=== PATIENT | male | born 1940 | race Caucasian/White ===

== ENCOUNTER 2019-07-28 05:16 | Day surgery (SDC) | payer MEDICARE, BC ==
[~2019-07-28 05:16] MED LIST: CEFAZOLIN SODIUM 2 GM in DEXTROSE 5%-WATER 100 ML IV PRN
--- NOTE | 2019-07-28 07:02 | RADIOLOGY REPORT (SQ) ---
EXAM DESCRIPTION: XR CHEST 1 VIEW COMPLETED DATE/TME: 07/28/2019 00:00 CLINICAL HISTORY: 79 years Male, preop COMPARISON: None. NUMBER OF VIEWS/TECHNIQUE: 1/AP FINDINGS: Adequate lung volume, clear parenchyma, normal cardiac silhouette, and intact bony thorax.Old granulomatous disease. Sternotomy. Cardiac/mediastinal hardware/clips. Atherosclerotic vascular disease. IMPRESSION: No acute cardiopulmonary findings.
[2019-07-28 07:05] LABS: APPEARANCE,URINE CLEAR; BILIRUBIN,URINE NEGATIVE (NEGATIVE); COLOR,URINE YELLOW; GLUCOSE, URINE NEGATIVE (NEGATIVE); KETONES,URINE NEGATIVE (NEGATIVE); LEUKOCYTE ESTERASE,URINE NEGATIVE (NEGATIVE); NITRITE,URINE NEGATIVE (NEGATIVE); PROTEIN,URINE NEGATIVE (NEGATIVE); URINE SPECIFIC GRAVITY 1.016; UROBILINOGEN,URINE NEGATIVE mg/dL (<2.0)
[2019-07-28] MEDS ORDERED: BUPIVACAINE HCL 0.5%-EPI 1:200000 INJ/PF 30 ML VIAL ONE (07:06)
[2019-07-28] MEDS ORDERED: BUPIVACAINE HCL 0.5 % INJ/PF 30 ML SDV ONE (07:06)
[2019-07-28 07:10] LABS: ABSOLUTE BASOPHILS # (AUTO) 0.1 10^3/uL (0.0-0.2); ABSOLUTE EOSINOPHILS # (AUTO) 0.3 10^3/uL (0.0-0.6); ABSOLUTE LYMPHOCYTES (AUTO) 1.2 10^3/uL (0.5-4.7); ABSOLUTE MONOCYTES (AUTO) 0.7 10^3/uL (0.1-1.4); ABSOLUTE NEUT (AUTO) 3.2 10^3/uL (1.7-8.2); ANION GAP 6 (5-19); BASOPHILS % (AUTO) 1.2 % (0-2); BLOOD UREA NITROGEN 19 mg/dL (7-20); CALCIUM 8.5 mg/dL (8.4-10.2); CARBON DIOXIDE 27 mmol/L (22-30); CHLORIDE 102 mmol/L (98-107); EOSINOPHILS % (AUTO) 4.8 % (0-6); GLUCOSE 107 mg/dL (75-110); HEMATOCRIT 38.2 % (37.9-51.0); HEMOGLOBIN 13.2 g/dL (13.5-17.0); LYMPHOCYTES % (AUTO) 22.3 % (13-45); MEAN CORPUSCULAR HGB CONC 34.5 g/dL (32.0-36.0); MEAN CORPUSCULAR VOLUME 90 fl (80-97); MONOCYTES % (AUTO) 12.4 % (3-13); PLATELET COUNT 173 10^3/uL (150-450); POTASSIUM 4.6 mmol/L (3.6-5.0); RED BLOOD COUNT 4.25 10^6/uL (4.35-5.55); RED CELL DISTRIBUTION WIDTH 14.9 % (11.5-14.0); SEGMENTED NEUTROPHILS % (AUTO) 59.3 % (42-78); TOTAL CELLS COUNTED % (AUTO) 100 %; WHITE BLOOD COUNT 5.4 10^3/uL (4.0-10.5)
[2019-07-28] MEDS ORDERED: MIDAZOLAM 2 MG/2 ML INJ ONE (07:24)
[2019-07-28] MEDS ORDERED: FENTANYL CITRATE INJ/PF 100 MCG/2 ML AMPUL ONE (07:24)
[2019-07-28] MEDS ORDERED: EPHEDRINE SULFATE INJ 50 MG/1 ML AMPULE ONE (07:24)
[2019-07-28] MEDS ORDERED: PROPOFOL INJ 200 MG/20 ML VIAL IV ONE (07:25)
[2019-07-28] MEDS ORDERED: FENTANYL CITRATE INJ/PF 100 MCG/2 ML AMPUL IV PRN ×3 (07:50)
[2019-07-28] MEDS ORDERED: OXYCODONE-ACETAMINOPHEN 5-325 MG TABLET PO PRN ×2 (07:50)
[2019-07-28] MEDS ORDERED: DIPHENHYDRAMINE HCL 50 MG/ML VIAL IV PRN (07:50)
[2019-07-28] MEDS ORDERED: PROMETHAZINE HCL INJ 25 MG/1 ML VIAL IV PRN ×2 (07:50)
[2019-07-28] MEDS ORDERED: MEPERIDINE HCL/PF INJ 25 MG/1 ML DISP.SYRIN IV PRN (07:50)
--- NOTE | 2019-07-28 09:08 | Discharge Summary ---
Discharge Summary (SDC) - Discharge Final Diagnosis: Right periprosthetic quadriceps disruption Date of Surgery: 07/28/19 Discharge Date: 07/28/19 Condition: Good Forms: ASU Anesthesia D/C Instruction, Discharge POC-Surgical Service Treatment or Instructions: Wear right lower extremity brace at all times locked in extension. Weightbearing as tolerated. Remove compressive wrap on Friday and OpSite dressing in place. You can shower once the compressive wrap has been removed. Prescriptions: Oxycodone HCl [Oxy-Ir 5 mg Tablet] 5 mg PO Q6 PRN #24 tablet PRN Reason: Referrals: WALTER BURCIAGA MD [ACTIVE STAFF] - 08/11/19 1:00 pm Discharge Diet: Regular Respiratory Treatments at Home: Deep Breathing/Coughing Discharge Activity: Balance Activity w/Rest, No tub bath Home Care Assistance: None Needed Report the Following to Your Physician Immediately: Shortness of Breath, Fever over 101 Degrees, Drainage-Foul Smelling
--- NOTE | 2019-07-28 09:11 | Operative Report ---
Operative Report DATE OF SURGERY: 07/28/19 PREOPERATIVE DIAGNOSIS: Right periprosthetic extensor mechanism disruption POSTOPERATIVE DIAGNOSIS: Right periprosthetic quadriceps tendon disruption OPERATION: Open repair of right quadriceps tendon SURGEON: WALTER BURCIAGA ANESTHESIA: Spinal TISSUE REMOVED OR ALTERED: Cultures to microbiology ESTIMATED BLOOD LOSS: Minimal PROCEDURE: With the patient supine on the operating table the right lower extremities prepped and draped in a sterile fashion. The limb is elevated for exsanguination tourniquet inflated 280 torr. A standard midline incision is made in line with the previous surgical approach. Upon transecting the dermis a large amount of liquefied hematoma is identified and this is cultured and sent to microbiology. The dissection is developed medial and laterally and it is clear that there is been disruption at the quadriceps insertion into the patella. 2 x 5.5 the medial bone anchors were placed into the proximal patella medial and lateral to the midline. 2 of the FiberWire sutures that emanate from the bone anchors were then used to bring the quadriceps tendon back to the prox imal patella using a Krakw suture fashion. The remaining 2 sutures from each bone anchor are then used to repair the respective medial and lateral retinaculum. Lastly a fiber wire tape was passed through infrapatellar and into the suprapatellar region and a [id number] construct is used with this to reinforce the primary repair. Direct visualization at this point the knee is flexed through a range of motion of oh to 60 degrees. The repair appears to be solid. There is some stiffness at the extremes of flexion which is not unexpected. The tourniquet is deflated. There is minimal if any bleeding. The wound is irrigated. The subcutaneous layers were reapproximated interrupted Vicryl and the skin reapproximated with christy. A sterile compressive dressing and lower extremity's are applied. The patient is returned to the PACU in satisfactory condition.
--- NOTE | 2019-07-28 10:08 | EKG REPORT ---
SEVERITY:- OTHERWISE NORMAL ECG - SINUS RHYTHM LOW VOLTAGE IN FRONTAL LEADS : Confirmed by: Perlita Kilpatrick MD 28-Jul-2019 10:07:46
[2019-07-28 12:27] VITALS: BP 128/72
== END 2019-07-28 12:55 | disposition home or self-care (01) ==
LOC: OROUT 05:16
PROVIDERS: ATTEND Orthopaedic Surgery
DX: S76.111A Strain of right quadriceps muscle, fascia and tendon, initial encounter (principal); W19.XXXA Unspecified fall, initial encounter; Z96.659 Presence of unspecified artificial knee joint; I10 Essential (primary) hypertension; I25.10 Atherosclerotic heart disease of native coronary artery without angina pectoris; I25.2 Old myocardial infarction; Z79.82 Long term (current) use of aspirin; Z79.899 Other long term (current) drug therapy
CPT/HCPCS: 36415; 87070; 87205; 85025; 87075; 80048; 81001; 71045; 93005; 93010; 01250; 27385; C1713 ×2; J2250; J0690; J3490; J3010; J7060; J2704; 1250

== ENCOUNTER 2019-08-17 16:12 | Inpatient (IN) | payer MEDICARE, BC ==
--- NOTE | 2019-08-17 17:31 | ER Document Report ---
ED General - General Chief Complaint: Wound Infection Stated Complaint: KNEE SWELLING Time Seen by Provider: 08/17/19 16:25 Primary Care Provider: CECIL CORLEY MD [Primary Care Provider] - Follow up as needed Mode of Arrival: Medic Information source: Patient TRAVEL OUTSIDE OF THE [place] IN LAST 30 DAYS: No - HPI Notes: Patient was transferred here from [facility] under the direction of Dr. Martinez. Dr. Martinez did see and examine the patient in the emergency department. I did initially see the patient and get order started to help the patient's care progress as quickly as possible. Patient does complain of some right knee pain. Apparently his wound has been bleeding and has been ruptured at the suture site. Patient says he has some mild pain there. It is worse with movement and better with rest. The pain does radiate up his right leg. The pain is constant. It is mild to moderate in intensity. No known fevers. He has noticed some color changes about the knee and the right thigh. - Related Data Allergies/Adverse Reactions: bacitracin [From Neosporin Plus] Adverse Reaction (Verified 07/28/19 05:45) rash lidocaine [From Neosporin Plus] Adverse Reaction (Verified 07/28/19 05:45) rash miconazole [From Neosporin AF] Adverse Reaction (Verified 07/28/19 05:45) rash neomycin [From Neosporin Plus] Adverse Reaction (Verified 07/28/19 05:45) rash polymyxin B [From Neosporin Plus] Adverse Reaction (Verified 07/28/19 05:45) rash pramoxine [From Neosporin Plus] Adverse Reaction (Verified 07/28/19 05:45) rash Past Medical History - General Information source: Patient - Social History Smoking Status: Former Smoker Frequency of alcohol use: None Drug Abuse: None Family History: Reviewed & Not Pertinent Patient has suicidal ideation: No Patient has homicidal ideation: No - Past Medical History Cardiac Medical History: Reports: Hx Coronary Artery Disease, Hx Heart Attack - 10 YEARS AGO, Hx Hypercholesterolemia - meds x 6 years, Hx Hypertension, Hx Heart Murmur - "small"....difficult to detect Denies: Hx Atrial Fibrillation, Hx Congestive Heart Failure, Hx Peripheral Vascular Disease, Hx Pulmonary Embolism Pulmonary Medical History: Reports: Hx Sleep Apnea - Hx of, does NOT use CPAP at present Denies: Hx Asthma, Hx Bronchitis, Hx COPD, Hx Pneumonia, Hx Respiratory Failure, Hx Tuberculosis Neurological Medical History: Denies: Hx Cerebrovascular Accident, Hx Seizures, Hx Parkinson's Disease Renal/ Medical History: Reports: Hx Kidney Stones - multiple, deines surgery/ESWL. Denies: Hx Benign Prostatic Hyperplasia - nocturia x 2-3/night, Hx End Stage Renal Disease, Hx Peritoneal Dialysis Malignancy Medical History: Denies Hx Leukemia, Denies Hx Lung Cancer GI Medical History: Reports: Hx Liver Failure - "fatty liver". Denies: Hx Crohn's Disease, Hx Gastroesophageal Reflux Disease, Hx Hiatal Hernia, Hx Irritable Bowel, Hx Pancreatitis, Hx Ulcer Musculoskeletal Medical History: Reports Hx Arthritis, Denies Hx Fibromyalgia, Denies Hx Multiple Sclerosis, Denies Hx Muscular Dystrophy Psychiatric Medical History: Reports: Hx Depression - meds x 10 years Denies: Hx Bipolar Disorder, Hx Dementia, Hx Post Traumatic Stress Disorder, Hx Schizophrenia Traumatic Medical History: Reports: Hx Fractures - small toe LT foot Infectious Medical History: Denies: Hx HIV Past Surgical History: Reports: Hx Cholecystectomy - , 2012, Hx Coronary Artery Bypass Graft - 2008 (3 vessel). Denies: Hx Appendectomy, Hx Bowel Surgery, Hx Colostomy, Hx Gastric Bypass Surgery, Hx Herniorrhaphy, Hx Pacemaker, Hx Tonsillectomy Review of Systems - Review of Systems Constitutional: denies: Chills, Fever Cardiovascular: denies: Chest pain, Palpitations Respiratory: denies: Cough, Short of breath -: Yes All other systems reviewed and negative Physical Exam - Vital signs Vitals: Temp 98.5 F 08/17/19 16:40 Interpretation: Normal - General General appearance: Appears well, Alert - HEENT Head: Normocephalic, Atraumatic Eyes: Normal Pupils: PERRL - Respiratory Respiratory status: No respiratory distress Chest status: Nontender Breath sounds: Normal Chest palpation: Normal - Cardiovascular Rhythm: Regular Heart sounds: Normal auscultation Murmur: No - Abdominal Inspection: Normal Distension: No distension Bowel sounds: Normal Tenderness: Nontender Organomegaly: No organomegaly - Back Back: Normal, Nontender - Extremities General upper extremity: Normal inspection, Nontender, Normal color, Normal ROM, Normal temperature General lower extremity: Other - Patient's right knee has dehiscence of an o bvious surgical wound. At this time some red serosanguineous fluid can be expressed with pressure but otherwise there is no leakage of fluid. No pus is appreciated. Superior to this he does have some mild induration and tenderness as well as some blanching erythema. He also has some ecchymosis that is somewhat tender on the lateral upper right thigh.. No: Kalen's sign - Neurological Neuro grossly intact: Yes Cognition: Normal Orientation: AAOx4 [place] Coma Scale Eye Opening: Spontaneous [place] Coma Scale Verbal: Oriented [place] Coma Scale Motor: Obeys Commands [place] Coma Scale Total: 15 Speech: Normal Motor strength normal: LUE, RUE, LLE, RLE Sensory: Normal - Psychological Associated symptoms: Normal affect, Normal mood - Skin Skin Temperature: Warm Skin Moisture: Dry Skin Color: Normal Course - Re-evaluation Re-evalutation: 08/17/19 17:43 Patient was seen in the emergency room by Dr. Martinez. He states he will admit the patient and treat him further on the floor. - Vital Signs Vital signs: Temp Pulse Resp BP Pulse Ox 98.5 F 08/17/19 16:40 - Diagnostic Test Radiology reviewed: Image reviewed, Reports reviewed Discharge - Discharge Clinical Impression: Wound dehiscence, surgical Qualifiers: Encounter type: initial encounter Qualified Code(s): T81.31XA - Disruption of external operation (surgical) wound, not elsewhere classified, initial encounter Condition: Stable Disposition: ADMITTED INPATIENT Admitting Provider: Juan Unit Admitted: Surgical Floor Referrals: CECIL CORLEY MD [Primary Care Provider] - Follow up as needed
--- NOTE | 2019-08-17 17:48 | PDOC H&P ---
History of Present Illness Admission Date/PCP: CECIL CORLEY MD History of Present Illness: MATTY JO is a 79 year old male The patient is a 79-year-old white male status post a right knee arthroplasty in 2014 who most recently presented in late June with a disruption of the extensor mechanism status post a fall. On July 28, 2019 the patient was taken to the operating room and underwent a reconstruction of the extensor mechanism. He was subsequent seen in the office 2 weeks later at which point the wound was healing uneventfully and christy were removed. The patient had discontinued the use of the leg brace that had been applied postoperatively because it interfered with his ability to use the bathroom. Patient subsequently fell on several occasions. It was my impression at that office visit that the patient had directed the extensor mechanism again but I felt that by readjustment of the knee brace and leaving the knee in extension that the patient may scar down enough that he would have a functional extension of the knee. The patient today presented to the [facility] emergency room with drainage from the knee. He states that he still had problems with the knee brace and took it off so he can modify it. In the process of having the knee brace off the patient again fell in the bathtub. It is a result of this fall that has led to wound dehiscence and drainage. Past Medical History Cardiac Medical History: Reports: Coronary Artery Disease, Myocardial Infarction - 10 YEARS AGO, Hyperlipidema - meds x 6 years, Hypertension, Heart Murmur - "small"....difficult to detect Denies: Atrial Fibrillation, Congestive Heart Failure, Peripheral Vascular Disease, Pulmonary Embolism Pulmonary Medical History: Reports: Sleep Apnea - Hx of, does NOT use CPAP at present Denies: Asthma, Bronchitis, Chronic Obstructive Pulmonary Disease (COPD), Pneumonia, Respiratory Failure, Tuberculosis Neurological Medical History: Denies: Seizures Renal/ Medical History: Denies: End Stage Renal Disease Malignancy Medical History: Denies: Leukemia, Lung Cancer GI Medical History: Denies: Crohn's Disease, Gastroesophageal Reflux Disease, Hiatal Hernia Musculoskeltal Medical History: Reports: Arthritis Denies: Fibromyalgia Psychiatric Medical History: Reports: Depression - meds x 10 years Denies: Bipolar Disorder, Dementia, Post Traumatic Stress Disorder Hematology: Reports: Anemia Denies: Hemophilia, Sickle Cell Disease Infectious Medical History: Denies: HIV Past Surgical History Past Surgical History: Reports: Cholecystectomy - lap, 2012, Coronary Artery Bypass Graft - 2009 (3 vessel), Orthopedic Surgery - Right knee replacement 2014 Right knee extensor mechanism reconstruction Denies: Appendectomy, Colostomy, Gastric Bypass Surgery, Herniorrhaphy, Pacemaker, Tonsillectomy Social History Information Source: Patient, Dr. Montalvo, [facility] Records Lives with: Family Smoking Status: Unknown if Ever Smoked Hx Recreational Drug Use: No Hx Prescription Drug Abuse: No Family History Family History: Reviewed & Not Pertinent Parental Family History Reviewed: No Children Family History Reviewed: No Sibling(s) Family History Reviewed.: No Medication/Allergy Home Medications: Donepezil HCl [Aricept] 10 mg PO QPM 02/06/15 Metoprolol Succinate [Toprol Xl] 25 mg PO BID 02/06/15 Aspirin 81 mg PO DAILY 07/27/19 Cyclobenzaprine HCl 5 mg PO QHS PRN 07/27/19 Donepezil HCl 10 mg PO DAILY 07/27/19 Iron Otc 65 mg PO DAILY 07/27/19 Melatonin [Melatonin 3 mg Tablet] 3 mg PO QHS 07/27/19 Meloxicam [Mobic] 15 mg PO DAILY 07/27/19 Memantine HCl 5 mg PO BID 07/27/19 Simvastatin 40 mg PO QHS 07/27/19 Vitamin B12 Injections 1 applic INJ [id number] 07/27/19 Oxycodone HCl [Oxy-Ir 5 mg Tablet] 5 mg PO Q6 PRN #24 tablet 07/28/19 Allergies/Adverse Reactions: bacitracin [From Neosporin Plus] Adverse Reaction (Verified 07/28/19 05:45) rash lidocaine [From Neosporin Plus] Adverse Reaction (Verified 07/28/19 05:45) rash miconazole [From Neosporin AF] Adverse Reaction (Verified 07/28/19 05:45) rash neomycin [From Neosporin Plus] Adverse Reaction (Verified 07/28/19 05:45) rash polymyxin B [From Neosporin Plus] Adverse Reaction (Verified 07/28/19 05:45) rash pramoxine [From Neosporin Plus] Adverse Reaction (Verified 07/28/19 05:45) rash Review of Systems ROS unobtainable: Due to mental status All systems: as per PMH Physical Exam Vital Signs: Temp Pulse Resp BP Pulse Ox 36.9 C 08/17/19 16:40 Intake & Output 08/16/19 08/17/19 08/18/19 06:59 06:59 06:59 Weight 109 kg Physical Exam: The patient is a large elderly affable white male lying on ER gurney. The patient is conversant. He is unable to remember several facts such as his 's phone number. Is able to tell me that he took the knee brace off because it was bothering him and he wished to modify it. General appearance: PRESENT: no acute distress Head exam: PRESENT: normocephalic Respiratory exam: PRESENT: unlabored Cardiovascular exam: PRESENT: RRR Vascular exam: PRESENT: normal capillary refill GI/Abdominal exam: PRESENT: soft Rectal exam: PRESENT: deferred Extremities exam: PRESENT: other - Examination of the right lower extremity reveals a diffuse ecchymosis beginning at the greater trochanter and extending distally and posteriorly. Examination of the wound reveals a 3 cm dehiscence at the junction of the proximal and middle thirds of the incision. The patella seems to be intact with respect to the tibial tubercle but there seems to be disruption of the quadriceps tendon. Neurological exam: PRESENT: alert, awake, oriented to person, oriented to place, oriented to time, oriented to situation Skin exam: PRESENT: other - Large area of ecchymosis in the right lower extremity Results Status: Imported from PACS Assessment & Plan - Diagnosis (1) Wound dehiscence, surgical Qualifiers: Encounter type: initial encounter Qualified Code(s): T81.31XA - Disruption of external operation (surgical) wound, not elsewhere classified, initial encounter Is this a current diagnosis for this admission?: Yes Plan: Observation - Time Time Spent: 50 to 70 Minutes Anticipated discharge: SNF Within: Other
[2019-08-17] MEDS ORDERED: TRAMADOL HCL 50 MG TABLET PO PRN (17:49)
[2019-08-17] MEDS ORDERED: ONDANSETRON 4 MG TAB.RAPDIS PO PRN (17:49)
[2019-08-17 18:00] LABS: ABSOLUTE LYMPHOCYTES (AUTO) 0.6 10^3/uL (0.5-4.7); ABSOLUTE MONOCYTES (AUTO) 1.1 10^3/uL (0.1-1.4); ABSOLUTE NEUT (AUTO) 5.5 10^3/uL (1.7-8.2); BASOPHILS % (AUTO) 0.5 % (0-2); EOSINOPHILS % (AUTO) 0.6 % (0-6); HEMATOCRIT 27.6 % (37.9-51.0); HEMOGLOBIN 9.3 g/dL (13.5-17.0); LYMPHOCYTES % (AUTO) 8.4 % (13-45); MEAN CORPUSCULAR HEMOGLOBIN 30.7 pg (27.0-33.4); MEAN CORPUSCULAR HGB CONC 33.9 g/dL (32.0-36.0); MEAN CORPUSCULAR VOLUME 91 fl (80-97); MONOCYTES % (AUTO) 15.4 % (3-13); PLATELET COUNT 199 10^3/uL (150-450); RED BLOOD COUNT 3.04 10^6/uL (4.35-5.55); RED CELL DISTRIBUTION WIDTH 14.7 % (11.5-14.0); SEGMENTED NEUTROPHILS % (AUTO) 75.1 % (42-78); TOTAL CELLS COUNTED % (AUTO) 100 %; WHITE BLOOD COUNT 7.3 10^3/uL (4.0-10.5)
[2019-08-17 18:03] LABS: INTERNATIONAL RATION (INR) 1.31; PROTHROMBIN TIME 16.4 SEC (11.4-15.4)
[2019-08-17 18:04] LABS: PARTIAL THROMBOPLASTIN TIME 32.2 SEC (23.5-35.8)
--- NOTE | 2019-08-17 18:04 | RADIOLOGY REPORT (SQ) ---
EXAM DESCRIPTION: KNEE RIGHT 2 VIEWS IMAGES COMPLETED DATE/TIME: 08/17/2019 5:40 pm REASON FOR STUDY: wound infection COMPARISON: 02/13/2015 NUMBER OF VIEWS: Four views. TECHNIQUE: AP, cross-table lateral radiographic images acquired of the right knee. LIMITATIONS: None. FINDINGS: MINERALIZATION: Normal. BONES: No acute fracture JOINT: No effusion. SOFT TISSUES: Soft tissue swelling. On the cross-table lateral image, there are multiple radiolucen t foci identified in the anterior soft tissues of the thigh and at the knee. The patella appears to be displaced somewhat anteriorly which maybe related patient positioning and or the underlying soft t issue swelling/infection. OTHER: A 3.1 cm os ossific density in the soft tissues anterior to the distal right femoral shaft ma ybe on the basis of myositis ossification. IMPRESSION: 1. The patient has a known wound infection. Soft tissue swelling extends from the visu alized lower anterior right thigh into the knee with multiple radiolucent foci identified. These fin dings are probably consistent with the patient's history. 2. Total right knee arthroplasty. No radiographic evidence of loosening. TECHNICAL DOCUMENTATION: JOB ID: [id number] 2010 [employer]- All Rights Reserved Reading location - IP/workstation name: [email or web address]
[2019-08-17 18:21] LABS: ALBUMIN 2.4 g/dL (3.5-5.0); ALKALINE PHOSPHATASE 74 U/L (38-126); ANION GAP 6 (5-19); ASPARTATE AMINO TRANSFERASE 25 U/L (17-59); BILIRUBIN,DIRECT 0.3 mg/dL (0.0-0.4); BILIRUBIN,TOTAL 1.3 mg/dL (0.2-1.3); BLOOD UREA NITROGEN 24 mg/dL (7-20); CALCIUM 7.6 mg/dL (8.4-10.2); CARBON DIOXIDE 26 mmol/L (22-30); CHLORIDE 98 mmol/L (98-107); GLUCOSE 103 mg/dL (75-110); POTASSIUM 3.9 mmol/L (3.6-5.0); TOTAL PROTEIN 4.7 g/dL (6.3-8.2)
[2019-08-17] MEDS ORDERED: CEFTRIAXONE 2 GM/D5W RTU 2 GM/50 ML RTUPB IV SCH (18:30)
[2019-08-17 18:33] LABS: C-REACTIVE PROTEIN 260.8 mg/L (<10.0)
[2019-08-17 18:40] LABS: ERYTHROCYTE SEDIMENTATION RATE 111 mm/hr (0-20)
[2019-08-17] MEDS: RINGERS SOLUTION,LACTATED 1,000 ML IV PRN (18:40)
--- NOTE | 2019-08-18 08:19 | EKG REPORT ---
SEVERITY:- OTHERWISE NORMAL ECG - SINUS RHYTHM LOW VOLTAGE IN FRONTAL LEADS : Confirmed by: Perlita Kilpatrick MD 18-Aug-2019 08:18:47
[2019-08-18] MEDS ORDERED: DEXTROSE 40% GEL 15 GM TUBE PO PRN ×2 (09:00)
[2019-08-18] MEDS ORDERED: DEXTROSE 50%-WATER 25 GM/50 ML DISP.SYRIN IV PRN ×2 (09:00)
[2019-08-18] MEDS ORDERED: GLUCAGON,HUMAN RECOMB 1 MG INJ SUBCUT PRN (09:00)
[2019-08-18] MEDS: ASPIRIN 81 MG TABLET, ENT COATED PO SCH (11:00)
[2019-08-18] MEDS ORDERED: FENTANYL CITRATE INJ/PF 100 MCG/2 ML AMPUL ONE (12:29)
[2019-08-18] MEDS ORDERED: MIDAZOLAM 2 MG/2 ML INJ ONE (12:29)
[2019-08-18] MEDS ORDERED: HYDROMORPHONE HCL INJ/PF 2 MG/ML AMPULE ONE (12:29)
[2019-08-18] MEDS ORDERED: PROPOFOL INJ 200 MG/20 ML VIAL IV ONE (12:30)
[2019-08-18] MEDS ORDERED: ONDANSETRON HCL INJ/PF 4 MG/2 ML SDV ONE (12:30)
[2019-08-18] MEDS ORDERED: BACITRACIN INJ 50,000 UNIT VIAL ONE (12:32)
--- NOTE | 2019-08-18 14:16 | Operative Report ---
Operative Report DATE OF SURGERY: 08/18/19 PREOPERATIVE DIAGNOSIS: hematoma right knee OPERATION: Irrigation debridement attempted repeat repair of the extensor mechanism and wound closure SURGEON: WALTER BURCIAGA ANESTHESIA: GA TISSUE REMOVED OR ALTERED: Cultures to microbiology ESTIMATED BLOOD LOSS: 75 PROCEDURE: With the patient supine and operative table the right lower extremities prepped and draped in a sterile fashion. The existing incision is opened with digital pressure. The wound is inspected. There is been a complete disruption of the expense extensor mechanism repair that had previously been performed including the avulsion of the bone anchors from the patella. The wound is debrided. Previous suture repair is removed in total along with the bone anchors. The soft tissue was scraped using a bearden elevator. All remaining tissue was viable at this point. Wound is irrigated with pulse lavage containing 6 L of normal saline containing Betadine. #1 PDS is then used to attempt to repair of the extensor mechanism. I did this not so much for mechanical repair because I do not think will be strong enough to sustain any significant mechanical forces, but to effect a second layer of closure for the wound. Subsequently the subcutaneous layers were reapproximated interrupted PDS and suture reapproximated interrupted PDS suture. A compressive dressing and a knee immobilizer applied and the patient was returned to the PACU in satisfactory condition.
[2019-08-18] MEDS: RINGERS SOLUTION,LACTATED 1,000 ML IV PRN ×2 (15:33→17:25)
[2019-08-18] MEDS ORDERED: TRAMADOL HCL 50 MG TABLET PO PRN (16:00)
[2019-08-18] MEDS: CEFTRIAXONE 2 GM/D5W RTU 2 GM/50 ML RTUPB IV SCH (17:28)
[2019-08-18] MEDS: OXYCODONE HCL IR 5 MG TABLET PO PRN (21:32)
[2019-08-18] MEDS: VANCOMYCIN HCL 1,500 MG in DEXTROSE 5%-WATER 250 ML IV SCH (21:33)
[2019-08-19] MEDS: RINGERS SOLUTION,LACTATED 1,000 ML IV PRN ×2 (02:31→09:24)
[2019-08-19 05:04] LABS: HEMATOCRIT 26.3 % (37.9-51.0); HEMOGLOBIN 9.1 g/dL (13.5-17.0); MEAN CORPUSCULAR HEMOGLOBIN 30.7 pg (27.0-33.4); MEAN CORPUSCULAR HGB CONC 34.6 g/dL (32.0-36.0); MEAN CORPUSCULAR VOLUME 89 fl (80-97); PLATELET COUNT 195 10^3/uL (150-450); RED BLOOD COUNT 2.96 10^6/uL (4.35-5.55); RED CELL DISTRIBUTION WIDTH 14.4 % (11.5-14.0); WHITE BLOOD COUNT 6.7 10^3/uL (4.0-10.5)
[2019-08-19 05:25] LABS: BLOOD UREA NITROGEN 17 mg/dL (7-20); CALCIUM 7.4 mg/dL (8.4-10.2); GLUCOSE 93 mg/dL (75-110); POTASSIUM 4.4 mmol/L (3.6-5.0)
[2019-08-19 05:33] LABS: ANION GAP 6 (5-19); CARBON DIOXIDE 28 mmol/L (22-30); CHLORIDE 97 mmol/L (98-107)
--- NOTE | 2019-08-19 06:51 | PDOC PROGRESS REPORT ---
Subjective Progress Note for:: 08/19/19 Reason For Visit: RIGHT KNEE SURGICAL WOUND DIHISCENCE 79-year-old white male postop day 1 status post I&D of a right knee hematoma/wound dehiscence. Uneventful postoperative course. Gram stain not performed yesterday because of the nature of the specimen. What was sent from the eating room was a container containing liquefied hematoma from the wound as well as a swab. There was no tissue involved in this. She remains afebrile and pain is well controlled. Physical Exam Vital Signs: Temp Pulse Resp BP Pulse Ox 36.8 C 69 18 117/52 L 96 08/18/19 23:13 08/18/19 23:13 08/18/19 23:13 08/18/19 23:13 08/18/19 23:13 Intake & Output 08/17/19 08/18/19 08/19/19 06:59 06:59 06:59 Intake Total 100 3280 Output Total 800 2450 Balance -700 830 Weight 99.1 kg 99.5 kg Physical Exam: Middle-aged white male lying in hospital bed. He is sleeping soundly, awoken, and subsequently alert and appropriate. General appearance: PRESENT: no acute distress, mild distress Head exam: PRESENT: normocephalic Respiratory exam: PRESENT: unlabored Cardiovascular exam: PRESENT: RRR Pulses: PRESENT: +1 pedal pulses bilateral Vascular exam: PRESENT: normal capillary refill GI/Abdominal exam: PRESENT: soft Rectal exam: PRESENT: deferred Extremities exam: PRESENT: other - Right lower extremity dressing is clean dry and intact and knee immobilizer is in place. Skin exam: PRESENT: dry, intact, warm. ABSENT: cyanosis, rash Results Laboratory Results: 08/19/19 04:33 08/19/19 04:33 08/19/19 08/19/19 04:33 04:33 WBC 6.7 RBC 2.96 L Hgb 9.1 L Hct 26.3 L MCV 89 MCH 30.7 MCHC 34.6 RDW 14.4 H Plt Count 195 Sodium 131.3 L Potassium 4.4 Chloride 97 L Carbon Dioxide 28 Anion Gap 6 BUN 17 Creatinine 0.59 Est GFR ( Amer) > 60 Glucose 93 Calcium 7.4 L 08/18/19 13:40 Knee - Tissue (Surgical) Gram Stain - Final Impressions: Knee X-Ray 08/17/19 17:16 IMPRESSION: 1. The patient has a known wound infection. Soft tissue swelling extends from the visualized lower anterior right thigh into the knee with multiple radiolucent foci identified. These findings are probably consistent with the patient's history. 2. Total right knee arthroplasty. No radiographic evidence of loosening. Status: Imported from PACS Assessment & Plan - Diagnosis (1) Wound dehiscence, surgical Qualifiers: Encounter type: initial encounter Qualified Code(s): T81.31XA - Disruption of external operation (surgical) wound, not elsewhere classified, initial encounter Is this a current diagnosis for this admission?: Yes Plan: Await intraoperative cultures to tailor antibiotics. Mobilize with physical therapy today on a touchdown weightbearing basis. Knee immobilizer to remain in place 24 hours a day 7 days a week. Discussion with the patient's long term facility placement will be necessary. Social work has been consulted for this. If cultures turn positive a PICC line will be placed (2) Urinary tract infection Is this a current diagnosis for this admission?: Yes Plan: Patient being treated pre-admission by an outside urologist with antibiotics and an indwelling Robles. The latter continues. Antibiotics have been tailored for potential surgical site infection. - Time Time Spent with patient: 15-24 minutes Anticipated discharge: SNF Within: when bed available
[2019-08-19] MEDS: ASPIRIN 81 MG TABLET, ENT COATED PO SCH (09:21)
[2019-08-19] MEDS: OXYCODONE HCL IR 5 MG TABLET PO PRN ×2 (09:21→17:07)
[2019-08-19] MEDS: VANCOMYCIN HCL 1,500 MG in DEXTROSE 5%-WATER 250 ML IV SCH ×2 (09:22→22:08)
[2019-08-19] MEDS: CEFTRIAXONE 2 GM/D5W RTU 2 GM/50 ML RTUPB IV SCH (17:07)
[2019-08-20] MEDS: OXYCODONE HCL IR 5 MG TABLET PO PRN (04:29)
--- NOTE | 2019-08-20 06:47 | PDOC PROGRESS REPORT ---
Subjective Progress Note for:: 08/20/19 Reason For Visit: RIGHT KNEE SURGICAL WOUND DIHISCENCE 79-year-old white male now postop day 2 status post I&D of right knee wound. Patient informs me this morning that there are several medications that he had been taking that are not currently being administered. He is correct. This is reviewed with the nursing staff who will reinstate 3 medications. Slept well last night. Limited progress with physical therapy yesterday. Cultures demonstrate 1+ gram-positive cocci in clusters. Patient remains afebrile. Physical Exam Vital Signs: Temp Pulse Resp BP Pulse Ox 36.8 C 72 18 127/60 H 97 08/19/19 23:22 08/19/19 23:22 08/19/19 23:22 08/19/19 23:22 08/19/19 23:22 Intake & Output 08/18/19 08/19/19 08/20/19 06:59 06:59 06:59 Intake Total 100 3280 3250 Output Total 800 2450 3350 Balance -700 830 -100 Weight 99.1 kg 99.5 kg 96.2 kg General appearance: PRESENT: no acute distress, well-developed, well-nourished Head exam: PRESENT: normocephalic Respiratory exam: PRESENT: unlabored Cardiovascular exam: PRESENT: RRR Pulses: PRESENT: +1 pedal pulses bilateral Vascular exam: PRESENT: normal capillary refill GI/Abdominal exam: PRESENT: soft Rectal exam: PRESENT: deferred Extremities exam: PRESENT: other - Right lower extremity dressing clean dry and intact Results Laboratory Results: 08/19/19 04:33 08/19/19 04:33 08/18/19 13:40 Knee - Tissue (Surgical) Gram Stain - Final Impressions: Knee X-Ray 08/17/19 17:16 IMPRESSION: 1. The patient has a known wound infection. Soft tissue swelling extends from the visualized lower anterior right thigh into the knee with multiple radiolucent foci identified. These findings are probably consistent with the patient's history. 2. Total right knee arthroplasty. No radiographic evidence of loosening. Status: Imported from PACS Assessment & Plan - Diagnosis (1) Wound dehiscence, surgical Qualifiers: Encounter type: initial encounter Qualified Code(s): T81.31XA - Disruption of external operation (surgical) wound, not elsewhere classified, initial encounter Is this a current diagnosis for this admission?: Yes Plan: Await further results from microbiology. Tentative plan will be for discharge to a assisted facility. Social work is been consulted in the postoperative orders and a note is not present in the chart informing the other caregivers what options are available for the patient for placement. And for discharge to a assisted facility when bed available. Anticipate the need for prolonged antibiotic therapy and a PICC line has been ordered. (2) Urinary tract infection Is this a current diagnosis for this admission?: Yes Plan: Stable. Urine appears clear today. - Time Time Spent with patient: 15-24 minutes Anticipated discharge: SNF Within: when bed available
[2019-08-20] MEDS ORDERED: PHARMACY COMMUNICATION ORDER MC ONE (09:30)
[2019-08-20 09:59] LABS: VANCOMYCIN,TROUGH 7.9 ug/mL (5.0-20.0)
[2019-08-20] MEDS: VANCOMYCIN HCL 1,500 MG in DEXTROSE 5%-WATER 250 ML IV SCH ×2 (11:17→18:48)
[2019-08-20] MEDS: ASPIRIN 81 MG TABLET, ENT COATED PO SCH (11:18)
[2019-08-20] MEDS: FLUOXETINE HCL 20 MG CAPSULE PO SCH (11:18)
[2019-08-20] MEDS: MEMANTINE HCL 10 MG TABLET PO SCH (11:19)
[2019-08-20] MEDS: RINGERS SOLUTION,LACTATED 1,000 ML IV PRN (11:22)
--- NOTE | 2019-08-20 14:18 | RADIOLOGY REPORT (SQ) ---
EXAM DESCRIPTION: PICC INSERTION IMAGES COMPLETED DATE/TIME: 08/20/2019 1:55 pm REASON FOR STUDY: IV ABX COMPARISON: None. FLUOROSCOPY TIME: 13 seconds of fluoroscopy was used. 1 images saved to PACS. TECHNIQUE: Fluoroscopic and ultrasound guided PICC placement. LIMITATIONS: None. PROCEDURE: After written consent and assessment were obtained, the patient was brought into the fluo roscopy room and placed supine on the table. Ultrasound evaluation of potential access sites were per formed. After successfully identifying a patent left basilic vein, the left arm was prepped and drape d in a sterile fashion along with the ultrasound probe. The entry site was anesthetized with 1% lidoc herson. A 21 gauge 7 cm needle was advanced through the skin and into the basilic vein under live ultra sound guidance. An ultrasound image was saved to PACS confirming access site. A .018 guide wire was then inserted through the needle and into the venous system. The needle was then removed and an 11 b lade scalpel was used to make a 1cm skin incision. A 5 fr peel-away sheath was advanced over the wir e and into the venous system. A measurement was then made using the existing wire and live fluoroscop ic guidance. The wire was then removed and trimmed. The PICC was advanced through the peel-away sheat h and into the venous system. The peel-away sheath was removed and the catheter was adhered to the pa tients arm with a stat lock. The catheter was then aspirated and flushed and a sterile bandage was pl aced over the access site. A fluoroscopic spot image was saved to PACS confirming the catheter tip w ithin the superior vena cava. IMPRESSION: SUCCESSFUL PLACEMENT OF A 5 FR DUAL LUMEN 43 CM PICC IN THE LEFT BASILIC VEIN. COMMENT: Patient medication list reviewed: Yes- Quality ID# 130:Eligible professional attests to doc umenting in the medical record they obtained, updated, or reviewed the patient's current medications. . Quality ID 145: Final reports for procedures using fluoroscopy that document radiation exposure jaimee peter, or exposure time and number of fluorographic images (if radiation exposure indices are not avail able) Quality ID #76: The patient was prepped and draped using maximum sterile barrier technique including cap, mask, sterile gown, sterile gloves, a large sterile sheet, hand hygiene, and 2% Chlorhexidine fo r cutaneous antisepsis. When ultrasound is used, sterile ultrasound techniques are followed requiring sterile gel and sterile probes. TECHNICAL DOCUMENTATION: JOB ID: [id number] 2010 [employer]- All Rights Reserved rev-09/05 Reading location - IP/workstation name: [id number]
[2019-08-20] MEDS: CEFTRIAXONE 2 GM/D5W RTU 2 GM/50 ML RTUPB IV SCH (18:18)
[2019-08-20] MEDS: DONEPEZIL HCL 5 MG TABLET PO SCH (22:00)
[2019-08-21] MEDS: VANCOMYCIN HCL 1,500 MG in DEXTROSE 5%-WATER 250 ML IV SCH (02:27)
[2019-08-21] MEDS: RINGERS SOLUTION,LACTATED 1,000 ML IV PRN (05:11)
--- NOTE | 2019-08-21 08:30 | PDOC PROGRESS REPORT ---
Subjective Progress Note for:: 08/21/19 Subjective:: Patient lying in bed comfortably. No issues overnight. Denies fever chills or sweats. Still having difficulty with physical therapy. Reason For Visit: RIGHT KNEE SURGICAL WOUND DIHISCENCE Physical Exam Vital Signs: Temp Pulse Resp BP Pulse Ox 98.5 F 73 16 144/58 H 95 08/21/19 07:17 08/21/19 07:17 08/21/19 07:17 08/21/19 07:17 08/21/19 07:17 Intake & Output 08/20/19 08/21/19 08/22/19 06:59 06:59 06:59 Intake Total 3250 2970 Output Total 3350 4600 Balance -100 -1705 Weight 96.2 kg 100.1 kg Musculoskeletal exam: PRESENT: other - Right knee: Incision clean/dry/intact no erythema or drainage. Mild swelling. Intact plantarflexion/dorsiflexion. No sensory deficits. Results Laboratory Results: 08/19/19 04:33 08/20/19 09:25 08/20/19 09:25 Creatinine 0.69 Est GFR ( Amer) > 60 08/18/19 13:40 Knee - Right Gram Stain - Final 08/18/19 13:40 Knee - Tissue (Surgical) Gram Stain - Final Impressions: Knee X-Ray 08/17/19 17:16 IMPRESSION: 1. The patient has a known wound infection. Soft tissue swelling extends from the visualized lower anterior right thigh into the knee with multiple radiolucent foci identified. These findings are probably consistent with the patient's history. 2. Total right knee arthroplasty. No radiographic evidence of loosening. PICC Line Insertion 08/20/19 00:00 IMPRESSION: SUCCESSFUL PLACEMENT OF A 5 FR DUAL LUMEN 43 CM PICC IN THE LEFT BASILIC VEIN. Assessment & Plan - Diagnosis (1) Primary osteoarthritis of right knee Is this a current diagnosis for this admission?: Yes Plan: Status post irrigation debridement right knee 1. Patient will continue physical therapy but will require shelter facility given his limited mobility and frequent falls. 2. Cultures demonstrate methicillin sensitive staph aureus thus discontinue vancomycin we will continue Rocephin 3. Discharge planning to shelter facility when bed available. - Time Time Spent with patient: Less than 15 minutes
[2019-08-21] MEDS: MEMANTINE HCL 10 MG TABLET PO SCH (10:27)
[2019-08-21] MEDS: ASPIRIN 81 MG TABLET, ENT COATED PO SCH (10:27)
[2019-08-21] MEDS: FLUOXETINE HCL 20 MG CAPSULE PO SCH (10:27)
[2019-08-21] MEDS: CEFTRIAXONE 2 GM/D5W RTU 2 GM/50 ML RTUPB IV SCH (17:05)
[2019-08-21] MEDS: DONEPEZIL HCL 5 MG TABLET PO SCH (21:54)
[2019-08-21] MEDS: NORMAL SALINE 10 ML SDV (SCHEDULED) IV SCH (21:55)
[2019-08-22] MEDS: FLUOXETINE HCL 20 MG CAPSULE PO SCH (10:21)
[2019-08-22] MEDS: ASPIRIN 81 MG TABLET, ENT COATED PO SCH (10:21)
[2019-08-22] MEDS: MEMANTINE HCL 10 MG TABLET PO SCH (10:21)
[2019-08-22] MEDS: NORMAL SALINE 10 ML SDV (SCHEDULED) IV SCH ×2 (10:22→22:15)
--- NOTE | 2019-08-22 17:05 | PDOC PROGRESS REPORT ---
Subjective Subjective:: Patient lying in bed comfortably. No issues overnight. Denies fever chills or sweats. Still having difficulty with physical therapy but is showing improvement.. Reason For Visit: RIGHT KNEE SURGICAL WOUND DIHISCENCE Physical Exam Vital Signs: Temp Pulse Resp BP Pulse Ox 98.4 F 81 16 133/70 H 98 08/22/19 16:14 08/22/19 16:14 08/22/19 16:14 08/22/19 16:14 08/22/19 16:14 Intake & Output 08/21/19 08/22/19 08/23/19 06:59 06:59 06:59 Intake Total 2970 2410 240 Output Total 4651 9150 600 Balance -6323 -266 -721 Weight 100.1 kg 98.8 kg Musculoskeletal exam: PRESENT: other - Right lower extremity: Dressing clean/dry/intact no erythema or drainage. No sensory deficits. Intact plantarflexion/dorsiflexion. Results Laboratory Results: 08/19/19 04:33 08/20/19 09:25 08/18/19 13:40 Knee - Tissue (Surgical) Gram Stain - Final 08/18/19 13:40 Knee - Tissue (Surgical) Wound Culture - Final Staphylococcus Aureus No Anaerobic Organisms Impressions: Knee X-Ray 08/17/19 17:16 IMPRESSION: 1. The patient has a known wound infection. Soft tissue swelling extends from the visualized lower anterior right thigh into the knee with mul tiple radiolucent foci identified. These findings are probably consistent with the patient's history. 2. Total right knee arthroplasty. No radiographic evidence of loosening. PICC Line Insertion 08/20/19 00:00 IMPRESSION: SUCCESSFUL PLACEMENT OF A 5 FR DUAL LUMEN 43 CM PICC IN THE LEFT BASILIC VEIN. Assessment & Plan - Diagnosis (1) Primary osteoarthritis of right knee Is this a current diagnosis for this admission?: Yes Plan: Status post irrigation debridement right knee 1. Patient will continue physical therapy but will require [facility] facility given his limited mobility and frequent falls. 2. Cultures finalized and demonstrate methicillin sensitive staph aureus thus we will continue Rocephin 3. Discharge planning to [facility] facility when bed available. - Time Time Spent with patient: Less than 15 minutes
[2019-08-22] MEDS: CEFTRIAXONE 2 GM/D5W RTU 2 GM/50 ML RTUPB IV SCH (21:44)
[2019-08-22] MEDS: DONEPEZIL HCL 5 MG TABLET PO SCH (21:45)
--- NOTE | 2019-08-23 08:11 | PDOC TRANSFER SUMMARY ---
Impression - Admit/DC Date/PCP Admission Date/Primary Care Provider: 08/17/19 17:59 CECIL CORLEY MD Discharge Date: 08/23/19 - Discharge Diagnosis (1) Wound dehiscence, surgical Is this a current diagnosis for this admission?: Yes (2) Urinary tract infection Is this a current diagnosis for this admission?: Yes - Additional Information Resuscitation Status: Full Code Discharge Diet: Regular Discharge Activity: Balance Activity w/Rest, No tub bath, Other - Touchdown weightbearing right lower extremity. Knee immobilizer at all times Referrals: CECIL CORLEY MD [Primary Care Provider] - Follow up as needed Home Medications: Donepezil HCl [Aricept] 10 mg PO QPM 02/06/15 Metoprolol Succinate [Toprol Xl] 25 mg PO DAILY 02/06/15 Aspirin 81 mg PO DAILY 07/27/19 Cyclobenzaprine HCl 10 mg PO HSP PRN 07/27/19 Meloxicam [Mobic] 15 mg PO DAILY 07/27/19 Memantine HCl 5 mg PO Q12 07/27/19 Simvastatin 40 mg PO QHS 07/27/19 Acetaminophen [Tylenol Arthritis] 650 mg PO Q8HP PRN 08/17/19 Cephalexin [Cephalexin 500 MG Tablet] 500 mg PO Q6 MDD FILLED 4-27 FOR 10 DAY SUPPLY 08/17/19 Fluoxetine HCl [Prozac 20 mg Capsule] 20 mg PO DAILY 08/17/19 Oxycodone HCl [Oxy-Ir 5 mg Tablet] 5 mg PO Q6HP PRN 08/17/19 Ferrous Sulfate [Feosol 325 mg Tablet] 325 mg PO DAILY 08/22/19 Ceftriaxone Sodium [Rocephin Inj 2000 mg Vial] 2,000 gm IV DAILY #40 08/23/19 History of Present Illiness History of Present Illness: Patient is a 79-year-old white male status post right knee arthroplasty in distant past more recently disruption of the extensor mechanism. Patient underwent an open repair of the extensor mechanism. In the postoperative rate he fell without the use of a long-leg brace and re-disrupted the extensor mechanism with a post fall hematoma. The patient presented to the [facility] emergency room with a post fall hematoma where a drain was placed into the knee by the emergency room physician. He presents here with a draining knee wound. Hospital Course Hospital Course: Patient is admitted through the emergency room to the orthopedic service and subsequently taken to the operating room for an I&D of the knee. Intraoperative findings are notable for disruption of the extensor mechanism including an avulsion of the bone anchor from the patella. Extensor mechanism was repaired primarily not necessarily for mechanical strength but for an extra layer of closure. The wound was subsequently closed with suture. Intraoperative cultures have subsequently grown pansensitive staph. The patient is maintained on IV Rocephin. Dressing is changed on the morning of August 22. Wound is well approximated sutures clean dry and intact. Physical Exam Vital Signs: Temp Pulse Resp BP Pulse Ox 37.2 C 81 16 124/52 L 94 08/22/19 23:04 08/22/19 23:04 08/22/19 23:04 08/22/19 23:04 08/22/19 23:04 Intake & Output 08/22/19 08/23/19 08/24/19 06:59 06:59 06:59 Intake Total 2410 650 Output Total 3150 2100 Balance -740 -1450 Weight 98.8 kg 95.8 kg General appearance: PRESENT: no acute distress Head exam: PRESENT: normocephalic Respiratory exam: PRESENT: unlabored Cardiovascular exam: PRESENT: RRR GI/Abdominal exam: PRESENT: soft Rectal exam: PRESENT: deferred Musculoskeletal exam: PRESENT: other - Right knee dressing is clean dry and intact. Minimal pedal edema. Distal neurovascular semination is intact. Results Laboratory Results: WBC 6.7 10^3/uL (4.0-10.5) 08/19/19 04:33 RBC 2.96 10^6/uL (4.35-5.55) L 08/19/19 04:33 Hgb 9.1 g/dL (13.5-17.0) L 08/19/19 04:33 Hct 26.3 % (37.9-51.0) L 08/19/19 04:33 MCV 89 fl (80-97) 08/19/19 04:33 MCH 30.7 pg (27.0-33.4) 08/19/19 04:33 MCHC 34.6 g/dL (32.0-36.0) 08/19/19 04:33 RDW 14.4 % (11.5-14.0) H 08/19/19 04:33 Plt Count 195 10^3/uL (150-450) 08/19/19 04:33 Lymph % (Auto) 8.4 % (13-45) L 08/17/19 16:30 Griggs % (Auto) 15.4 % (3-13) H 08/17/19 16:30 Eos % (Auto) 0.6 % (0-6) 08/17/19 16:30 Baso % (Auto) 0.5 % (0-2) 08/17/19 16:30 Absolute Neuts (auto) 5.5 10^3/uL (1.7-8.2) 08/17/19 16:30 Absolute Lymphs (auto) 0.6 10^3/uL (0.5-4.7) 08/17/19 16:30 Absolute Monos (auto) 1.1 10^3/uL (0.1-1.4) 08/17/19 16:30 Absolute Eos (auto) 0.0 10^3/uL (0.0-0.6) 08/17/19 16:30 Absolute Basos (auto) 0.0 10^3/uL (0.0-0.2) 08/17/19 16:30 Seg Neutrophils % 75.1 % (42-78) 08/17/19 16:30 ESR 111 mm/hr (0-20) H 08/17/19 16:30 PT 16.4 SEC (11.4-15.4) H 08/17/19 16:30 INR 1.31 08/17/19 16:30 APTT 32.2 SEC (23.5-35.8) 08/17/19 16:30 Sodium 131.3 mmol/L (137-145) L 08/19/19 04:33 Potassium 4.4 mmol/L (3.6-5.0) 08/19/19 04:33 Chloride 97 mmol/L (98-107) L 08/19/19 04:33 Carbon Dioxide 28 mmol/L (22-30) 08/19/19 04:33 Anion Gap 6 (5-19) 08/19/19 04:33 BUN 17 mg/dL (7-20) 08/19/19 04:33 Creatinine 0.69 mg/dL (0.52-1.25) 08/20/19 09:25 Est GFR ( Amer) > 60 (>60) 08/20/19 09:25 Est GFR (MDRD) Non-Af > 60 (>60) 08/20/19 09:25 Glucose 93 mg/dL (75-110) 08/19/19 04:33 Calcium 7.4 mg/dL (8.4-10.2) L 08/19/19 04:33 Total Bilirubin 1.3 mg/dL (0.2-1.3) 08/17/19 16:30 Direct Bilirubin 0.3 mg/dL (0.0-0.4) 08/17/19 16:30 Neonat Total Bilirubin Not Reportable 08/17/19 16:30 Neonat Direct Bilirubin Not Reportable 08/17/19 16:30 Neonat Indirect Bili Not Reportable 08/17/19 16:30 AST 25 U/L (17-59) 08/17/19 16:30 ALT 14 U/L (<50) 08/17/19 16:30 Alkaline Phosphatase 74 U/L (38-126) 08/17/19 16:30 C-Reactive Protein 260.8 mg/L (<10.0) H 08/17/19 16:30 Total Protein 4.7 g/dL (6.3-8.2) L 08/17/19 16:30 Albumin 2.4 g/dL (3.5-5.0) L 08/17/19 16:30 Time Trough Drawn 0925 08/20/19 09:25 Vancomycin Trough 7.9 ug/mL (5.0-20.0) 08/20/19 09:25 COVID-19 Source NASOPHARYNGEAL 08/21/19 04:45 COVID-19 (NINFA) NOT DETECTED 08/21/19 04:45 SARS-CoV-2 (PCR) Cancelled 08/19/19 13:20 Impressions: Knee X-Ray 08/17/19 17:16 IMPRESSION: 1. The patient has a known wound infection. Soft tissue swelling extends from the visualized lower anterior right thigh into the knee with multiple radiolucent foci identified. These findings are probably consistent with the patient's history. 2. Total right knee arthroplasty. No radiographic evidence of loosening. PICC Line Insertion 08/20/19 00:00 IMPRESSION: SUCCESSFUL PLACEMENT OF A 5 FR DUAL LUMEN 43 CM PICC IN THE LEFT BASILIC VEIN. Plan Plan of Treatment: Patient can be mobilized with physical therapy and a touchdown weightbearing restriction on the right lower extremity with the knee immobilizer in place 11/11. Anticipate the need for 6 weeks of IV Rocephin therapy. Stroke Is this a Stroke Patient?: No Stroke Pt being discharged on Anti-thrombolytic therapy?: Yes Acute Heart Failure - Is this a Heart Failure Patient?: No
[2019-08-23] MEDS: ASPIRIN 81 MG TABLET, ENT COATED PO SCH (11:22)
[2019-08-23] MEDS: FLUOXETINE HCL 20 MG CAPSULE PO SCH (11:22)
[2019-08-23] MEDS: MEMANTINE HCL 10 MG TABLET PO SCH (11:22)
[2019-08-23] MEDS: NORMAL SALINE 10 ML SDV (SCHEDULED) IV SCH ×2 (11:23→22:24)
[2019-08-23] MEDS: CEFTRIAXONE 2 GM/D5W RTU 2 GM/50 ML RTUPB IV SCH (18:48)
[2019-08-23] MEDS: DONEPEZIL HCL 5 MG TABLET PO SCH (22:21)
--- NOTE | 2019-08-24 07:25 | PDOC PROGRESS REPORT ---
Subjective Progress Note for:: 08/24/19 Subjective:: Patient is frustrated with prolonged hospitalization Reason For Visit: RIGHT KNEE SURGICAL WOUND DIHISCENCE Physical Exam Vital Signs: Temp Pulse Resp BP Pulse Ox 36.8 C 80 18 112/62 97 08/23/19 23:22 08/23/19 23:22 08/23/19 23:22 08/23/19 23:22 08/23/19 23:22 Intake & Output 08/23/19 08/24/19 08/25/19 06:59 06:59 06:59 Intake Total 650 50 Output Total 2100 100 Balance -1450 -50 Weight 95.8 kg General appearance: PRESENT: no acute distress Head exam: PRESENT: normocephalic Respiratory exam: PRESENT: unlabored Cardiovascular exam: PRESENT: RRR Pulses: PRESENT: +1 pedal pulses bilateral GI/Abdominal exam: PRESENT: soft Rectal exam: PRESENT: deferred Extremities exam: PRESENT: other - Right knee dressing with a small amount of drainage and central portion. Knee immobilizer in place. Distal neurovascular examination is intact . Results Laboratory Results: 08/19/19 04:33 08/20/19 09:25 Impressions: Knee X-Ray 08/17/19 17:16 IMPRESSION: 1. The patient has a known wound infection. Soft tissue swelling extends from the visualized lower anterior right thigh into the knee with multiple radiolucent foci identified. These findings are probably consistent with the patient's history. 2. Total right knee arthroplasty. No radiographic evidence of loosening. PICC Line Insertion 08/20/19 00:00 IMPRESSION: SUCCESSFUL PLACEMENT OF A 5 FR DUAL LUMEN 43 CM PICC IN THE LEFT BASILIC VEIN. Status: Imported from PACS Assessment & Plan - Diagnosis (1) Wound dehiscence, surgical Qualifiers: Encounter type: initial encounter Qualified Code(s): T81.31XA - Disruption of external operation (surgical) wound, not elsewhere classified, initial encounter Is this a current diagnosis for this admission?: Yes Plan: Continue dry dressing right knee. Continue mobilization on touchdown weightbearing basis. (2) Urinary tract infection Is this a current diagnosis for this admission?: Yes Plan: Presumably resolved. - Time Time Spent with patient: 15-24 minutes Anticipated discharge: SNF - Plan Summary Plan Summary: At the time of admission I had a long discussion with the patient's who felt that she was not able to safely take care of him at home because of his immobility and because of his relatively large size. This is what led to the consult for social work for senior living facility placement. While I realize that he has shown some ability to mobilize on his own for short distances, there really has been no substantial change in the patient's functional capacity from preop. I think that discharge home will likely lead to a rapid readmission to the hospital because of the patient's decreased functional status.
[2019-08-24] MEDS: MEMANTINE HCL 10 MG TABLET PO SCH (09:47)
[2019-08-24] MEDS: FLUOXETINE HCL 20 MG CAPSULE PO SCH (09:47)
[2019-08-24] MEDS: ASPIRIN 81 MG TABLET, ENT COATED PO SCH (09:47)
[2019-08-24] MEDS: NORMAL SALINE 10 ML SDV (SCHEDULED) IV SCH ×2 (09:48→21:25)
[2019-08-24] MEDS: NORMAL SALINE 10 ML SDV (AFTER EACH USE) IV PRN (09:48)
[2019-08-24] MEDS: CEFTRIAXONE 2 GM/D5W RTU 2 GM/50 ML RTUPB IV SCH (17:25)
[2019-08-24] MEDS: OXYCODONE HCL IR 5 MG TABLET PO PRN (21:20)
[2019-08-24] MEDS: DONEPEZIL HCL 5 MG TABLET PO SCH (21:21)
[2019-08-25] MEDS: ASPIRIN 81 MG TABLET, ENT COATED PO SCH (09:08)
[2019-08-25] MEDS: MEMANTINE HCL 10 MG TABLET PO SCH (09:08)
[2019-08-25] MEDS: FLUOXETINE HCL 20 MG CAPSULE PO SCH (09:08)
[2019-08-25] MEDS: NORMAL SALINE 10 ML SDV (SCHEDULED) IV SCH (09:09)
[2019-08-25] MEDS: NORMAL SALINE 10 ML SDV (AFTER EACH USE) IV PRN (09:09)
[2019-08-25] MEDS ORDERED: METOPROLOL SUCCINATE 25 MG TAB.SR.24H PO SCH (10:00)
[2019-08-25 12:51] VITALS: BP 106/59
[2019-08-25] MEDS ORDERED: CEFTRIAXONE 2 GM/D5W RTU 2 GM/50 ML RTUPB IV ONE (14:00)
== END 2019-08-25 17:32 | disposition home health service (06) | DRG 909 ==
LOC: ER 16:12 → EH 17:59 → 4N 20:32
PROVIDERS: ADMIT Orthopaedic Surgery; ATTEND Orthopaedic Surgery
PROC: 0QPD04Z Removal of Internal Fixation Device from Right Patella, Open Approach (ICD-10-PCS; 2019-08-18)
PROC: 0JDN0ZZ Extraction of Right Lower Leg Subcutaneous Tissue and Fascia, Open Approach (ICD-10-PCS; 2019-08-18)
PROC: 0LQQ0ZZ Repair Right Knee Tendon, Open Approach (ICD-10-PCS; principal; 2019-08-18 12:30)
DX: T81.32XA Disruption of internal operation (surgical) wound, not elsewhere classified, initial encounter (principal); S76.191A Other specified injury of right quadriceps muscle, fascia and tendon, initial encounter; S80.01XA Contusion of right knee, initial encounter; I25.2 Old myocardial infarction; I25.10 Atherosclerotic heart disease of native coronary artery without angina pectoris; E78.5 Hyperlipidemia, unspecified; I10 Essential (primary) hypertension; Y83.9 Surgical procedure, unspecified as the cause of abnormal reaction of the patient, or of later complication, without mention of misadventure at the time of the procedure; W18.2XXA Fall in (into) shower or empty bathtub, initial encounter; R29.6 Repeated falls; Z88.6 Allergy status to analgesic agent; Z79.899 Other long term (current) drug therapy; Z88.3 Allergy status to other anti-infective agents; Z97.8 Presence of other specified devices; Z96.651 Presence of right artificial knee joint; B95.8 Unspecified staphylococcus as the cause of diseases classified elsewhere
CPT/HCPCS: 01392; 36415; 36573; 80048; 80053; 80202; 82565; 85025; 85027; 85610; 85652; 85730; 86140; 87070; 87075; 87077; 87186; 87205; 87635; 93005; 93010; 99285; J0696; J1170; J1642; J2250; J2405; J2704; J3010; J3370; J3490; J7060; J7120; L1830